=== PATIENT | female | born 1970 | race Caucasian/White ===

== ENCOUNTER 2023-12-13 06:48 | Day surgery (SDC) | payer OTHER ==
[~2023-12-13] VITALS: Ht 172.7 cm; Wt 70.3 kg
[2023-12-13] MEDS ORDERED: MIDAZOLAM HCL 5 MG/5 ML VIAL ONE (07:11)
[2023-12-13] MEDS ORDERED: MEPERIDINE 100 MG INJ. 100 MG/ML VIAL ONE (07:11)
[2023-12-13 10:57] VITALS: O2SAT 100
[2023-12-13 12:46] VITALS: BP_SYST 113; PULSE 58; RESP 18
== END 2023-12-13 10:00 | disposition home or self-care (01) ==
LOC: SDS 06:48 → SMU 06:50 → SDS 10:00
PROVIDERS: ATTEND Internal Medicine Gastroenterology
DX: Z12.11 Encounter for screening for malignant neoplasm of colon (principal); D12.2 Benign neoplasm of ascending colon; K64.8 Other hemorrhoids; K21.9 Gastro-esophageal reflux disease without esophagitis; Z88.2 Allergy status to sulfonamides; Z79.899 Other long term (current) drug therapy; Z80.0 Family history of malignant neoplasm of digestive organs; Z83.711 Family history of hyperplastic colon polyps
CPT/HCPCS: 45385; 99152; 88305; G0378; J2250; J2175